=== PATIENT | male | born 1965 | race Caucasian/White ===

== ENCOUNTER 2018-05-08 01:22 | Inpatient (IN) ==
[2018-05-08 01:54] LABS: Baso # (Auto) 0.1 th/mm3 (0.0-0.2); Baso % (Auto) 0.6 % (0.0-2.0); Eos # (Auto) 0.2 th/mm3 (0.0-0.4); Eos % (Auto) 1.9 % (0.0-4.0); Hemoglobin 14.2 gm/dL (13.0-17.0); Lymph # (Auto) 4.6 th/mm3 (1.0-4.8); Lymph % (Auto) 40.3 % (9.0-44.0); Mean Corpuscular HGB Conc 33.8 % (32.0-36.0); Mean Corpuscular Hemoglobin 29.9 pg (27.0-34.0); Mean Corpuscular Volume 88.5 fL (80.0-100.0); Mean Platelet Volume 7.5 fL (7.0-11.0); Mono # (Auto) 0.8 th/mm3 (0.0-0.9); Mono % (Auto) 6.8 % (0.0-8.0); Neut # (Auto) 5.7 th/mm3 (1.8-7.7); Neut % (Auto) 50.4 % (16.0-70.0); Platelet Count 256 th/mm3 (150-450); Red Blood Count 4.75 mil/mm3 (4.50-5.90); White Blood Count 11.3 th/mm3 (4.0-11.0)
[2018-05-08] MEDS ORDERED: Morphine Inj 4 MG/ML Vial IV.PUSH ONE (01:54)
[2018-05-08] MEDS ORDERED: ceFAZolin 2 GM Premix Inj 2 GM/50 ML PIGGYBACK IV.SIG ONE (01:54)
[2018-05-08] MEDS ORDERED: Diphtheria/Tetanus/Pertussis Vaccine Inj 0.5 ML Syringe IM ONE (01:57)
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
[2018-05-08 02:03] LABS: Activated Partial Thrombo Time 19.8 sec (24.3-30.1); Prothrombin Time 10.2 sec (9.8-11.6)
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
[2018-05-08] MEDS ORDERED: Post-op Orders (for Pharmacy) OTHER STA (02:20)
[2018-05-08] MEDS ORDERED: Promethazine 25 MG Supp RECTAL PRN (02:20)
[2018-05-08] MEDS ORDERED: Bisacodyl 10 MG Supp RECTAL PRN (02:20)
[2018-05-08] MEDS ORDERED: Morphine Inj 4 MG/ML Vial IV.PUSH PRN (02:20)
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
[2018-05-08 02:37] LABS: Calcium 8.5 mg/dL (8.5-10.1); Carbon Dioxide 23.2 meq/L (21.0-32.0); Potassium 3.9 meq/L (3.5-5.1)
[2018-05-08] MEDS: Methocarbamol Inj 1,000 MG in Sodium Chlor 0.9% Inj 240 ML IV.SIG SCH ×3 (05:18→20:07)
[2018-05-08] MEDS: KCL 20 mEq/NACL 0.45% Inj 1,000 ML IV.CONT SCH ×3 (05:19→22:24)
[2018-05-08] MEDS: Lidocaine 5% Patch T-DERMAL SCH (09:57)
[2018-05-08] MEDS: Senna/Docusate Sodium 8.6/50 MG Tablet PO SCH ×2 (09:57→22:23)
[2018-05-08] MEDS ORDERED: HYDROmorphone PF Inj 1 MG/ML Ampul IV.PUSH ONE (10:16)
[2018-05-08] MEDS ORDERED: Naloxone Inj 0.4 MG/ML Vial IV.PUSH PRN (10:16)
[2018-05-08] MEDS ORDERED: HYDROmorphone PF Inj 2 MG/ML Vial IV.PUSH ONE ×2 (11:00)
[2018-05-08] MEDS: HYDROmorphone PCA Inj 6 MG/30 ML PCA.VIAL PCA PRN (11:31)
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
[2018-05-08] MEDS: Multivitamin Inj 10 ML, Thiamine Inj 100 MG, Folic Acid Inj 1 MG in Sodium Chlor 0.9% I... IV.SIG SCH (13:10)
[2018-05-08 16:35] LABS: Hematocrit 39.8 % (39.0-51.0); Hemoglobin 13.2 gm/dL (13.0-17.0)
[2018-05-08 21:31] LABS: Hematocrit 37.1 % (39.0-51.0); Hemoglobin 12.5 gm/dL (13.0-17.0)
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
[2018-05-09] MEDS: Methocarbamol Inj 1,000 MG in Sodium Chlor 0.9% Inj 240 ML IV.SIG SCH ×3 (03:00→18:32)
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
[2018-05-09 05:45] LABS: Baso % (Auto) 0.3 % (0.0-2.0); Eos # (Auto) 0.1 th/mm3 (0.0-0.4); Eos % (Auto) 0.5 % (0.0-4.0); Hematocrit 39.1 % (39.0-51.0); Hemoglobin 12.9 gm/dL (13.0-17.0); Lymph # (Auto) 2.7 th/mm3 (1.0-4.8); Lymph % (Auto) 18.5 % (9.0-44.0); Mean Corpuscular HGB Conc 33.1 % (32.0-36.0); Mean Corpuscular Hemoglobin 29.8 pg (27.0-34.0); Mean Corpuscular Volume 90.1 fL (80.0-100.0); Mean Platelet Volume 7.9 fL (7.0-11.0); Mono # (Auto) 1.6 th/mm3 (0.0-0.9); Mono % (Auto) 11.3 % (0.0-8.0); Neut % (Auto) 69.4 % (16.0-70.0); Platelet Count 199 th/mm3 (150-450); Red Blood Count 4.33 mil/mm3 (4.50-5.90); Red Cell Distribution Width 14.6 % (11.6-17.2); White Blood Count 14.4 th/mm3 (4.0-11.0)
[2018-05-09 05:53] LABS: Calcium 8.2 mg/dL (8.5-10.1); Carbon Dioxide 19.4 meq/L (21.0-32.0); Potassium 3.7 meq/L (3.5-5.1)
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
[2018-05-09] MEDS: Senna/Docusate Sodium 8.6/50 MG Tablet PO SCH ×2 (08:39→21:12)
[2018-05-09] MEDS: KCL 20 mEq/NACL 0.45% Inj 1,000 ML IV.CONT SCH ×2 (08:39→22:14)
[2018-05-09] MEDS: amLODIPine 5 MG Tablet PO SCH (08:39)
[2018-05-09] MEDS: Lidocaine 5% Patch T-DERMAL SCH (08:40)
[2018-05-09] MEDS: Multivitamin Inj 10 ML, Thiamine Inj 100 MG, Folic Acid Inj 1 MG in Sodium Chlor 0.9% I... IV.SIG SCH (08:41)
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
[2018-05-09 09:32] LABS: Eosinophils 1 % (0-4); Lymphocytes 17 % (9-44); Monocytes 9 % (0-8); Myelocytes 1 % (0-0)
[2018-05-09 09:33] LABS: Platelet Estimate Normal (Normal); Platelet Morphology Normal (Normal); RBC Morphology Normal (Normal)
[2018-05-09] MEDS ORDERED: HYDROmorphone PF Inj 1 MG/ML Ampul IV.PUSH PRN (10:48)
[2018-05-09] MEDS: HYDROmorphone PCA Inj 6 MG/30 ML PCA.VIAL PCA PRN ×2 (12:03→21:19)
[2018-05-09] MEDS ORDERED: Gabapentin 300 MG Capsule PO SCH (14:00)
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
[2018-05-09] MEDS ORDERED: HYDROmorphone PF Inj 2 MG/ML Vial IV.PUSH PRN (21:15)
[2018-05-10] MEDS: Methocarbamol Inj 1,000 MG in Sodium Chlor 0.9% Inj 240 ML IV.SIG SCH ×4 (04:43→21:40)
[2018-05-10 05:14] LABS: Baso % (Auto) 0.5 % (0.0-2.0); Eos # (Auto) 0.1 th/mm3 (0.0-0.4); Eos % (Auto) 0.8 % (0.0-4.0); Hemoglobin 12.1 gm/dL (13.0-17.0); Lymph # (Auto) 1.2 th/mm3 (1.0-4.8); Lymph % (Auto) 12.2 % (9.0-44.0); Mean Corpuscular HGB Conc 33.7 % (32.0-36.0); Mean Corpuscular Hemoglobin 30.6 pg (27.0-34.0); Mean Corpuscular Volume 90.8 fL (80.0-100.0); Mean Platelet Volume 7.7 fL (7.0-11.0); Mono # (Auto) 0.9 th/mm3 (0.0-0.9); Mono % (Auto) 9.5 % (0.0-8.0); Neut # (Auto) 7.4 th/mm3 (1.8-7.7); Platelet Count 165 th/mm3 (150-450); Red Blood Count 3.96 mil/mm3 (4.50-5.90); Red Cell Distribution Width 14.1 % (11.6-17.2); White Blood Count 9.7 th/mm3 (4.0-11.0)
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
[2018-05-10 05:47] LABS: Anion Gap 10 meq/L (5-15); Blood Urea Nitrogen 12 mg/dL (7-18); Calcium 8.4 mg/dL (8.5-10.1); Carbon Dioxide 22.7 meq/L (21.0-32.0); Chloride 107 meq/L (98-107); Glomerular Filtration Rate Greater Than 89 mL/min (>89); Glucose,Random 110 mg/dL (74-106); Potassium 3.8 meq/L (3.5-5.1); Sodium 140 meq/L (136-145)
[2018-05-10] MEDS: Multivitamin Inj 10 ML, Thiamine Inj 100 MG, Folic Acid Inj 1 MG in Sodium Chlor 0.9% I... IV.SIG SCH (09:41)
[2018-05-10] MEDS: Lidocaine 5% Patch T-DERMAL SCH (09:41)
[2018-05-10] MEDS: Allopurinol 100 MG Tablet PO SCH (09:42)
[2018-05-10] MEDS: Sertraline 100 MG Tablet PO SCH (09:42)
[2018-05-10] MEDS: dilTIAZem CD 120 MG Capsule PO SCH (09:42)
[2018-05-10] MEDS: amLODIPine 5 MG Tablet PO SCH (09:42)
[2018-05-10] MEDS: Senna/Docusate Sodium 8.6/50 MG Tablet PO SCH ×2 (09:42→21:10)
[2018-05-10] MEDS ORDERED: HYDROmorphone PF Inj 2 MG/ML Vial IV.PUSH PRN (11:00)
[2018-05-10] MEDS: KCL 20 mEq/NACL 0.45% Inj 1,000 ML IV.CONT SCH (15:00)
--- NOTE | 2018-05-10 18:48 | P.PNCC ---
Subjective Brief History: 52-year-old male involved in an [facility]ISON positive EtOH Multiple rib fractures on the left side grade 3 splenic injury Admitted to the ICU for pain control and observation 24 Hour Review/Hospital Course: 05/09 It is complaining of severe pain at the left thoracic area site of his multiple rib fractures His I-S is very poor Remains hemodynamically normal Hemoglobin is stable as well 05/10 continues to c/o of severe pain at the site of the rib fractures IS about 700 cc requires 6 L o2 to maintain spo2 in the 90 ies range HD normal- abdomen-soft,benign Objective Vital Signs / I&O: Vital Signs 05/09/18 20:00 05/09/18 20:46 05/09/18 21:03 Temperature 98.4 F Pulse Rate 112 H 116 H Respiratory Rate 22 22 22 Blood Pressure 136/97 H Pulse Oximetry 90 L 96 05/10/18 00:00 05/10/18 00:12 05/10/18 01:01 Temperature 98.6 F Pulse Rate 113 H 105 H 110 H Respiratory Rate 18 21 Blood Pressure 108/77 Pulse Oximetry 90 L 05/10/18 03:54 05/10/18 04:00 05/10/18 08:00 Temperature 98.2 F 98.4 F Pulse Rate 113 H 108 H 98 H Respiratory Rate 15 22 22 Blood Pressure 122/82 126/78 Pulse Oximetry 92 L 96 05/10/18 08:38 05/10/18 12:00 05/10/18 12:43 Temperature 98 F Pulse Rate 104 H 104 H 102 H Respiratory Rate 20 18 24 Blood Pressure 106/71 Pulse Oximetry 92 L 05/10/18 16:00 05/10/18 16:03 Temperature 98.3 F Pulse Rate 108 H Respiratory Rate 20 Blood Pressure 130/73 Pulse Oximetry 91 L 91 L Intake & Output 05/09/18 05/10/18 05/10/18 18:59 06:59 18:59 Intake Total 3161.2 / 3161.2 600 / 600 1861.2 / 1861.2 Output Total 600 / 600 1150 / 1150 Balance 2561.2 / 2561.2 -550 / -550 1861.2 / 1861.2 Weight 98.5 kg Intake: IV 2761.2 / 2761.2 600 / 600 1861.2 / 1861.2 Potassium Chlor 20 mEq/NACL 0. 1999 / 2000 1000 / 1000 45% Inj 1,000 ML @ 100 mls/hr IV.CONT .Q10H [facility] Rx#:[id number] Ofirmev Inj 1,000 mg In 100 ml 100 / 100 @ 400 mls/hr IV.SIG Q6H [facility] Rx# :[id number] Robaxin Inj 1,000 MG In NS Inj 250 / 250 500 / 500 250 / 250 240 ML @ 500 mls/hr IV.SIG Q8H [facility] Rx#:[id number] MVI-12 Inj 10 ML Thiamine Inj 511.2 / 511.2 511.2 / 511.2 100 MG Folvite Inj 1 MG In NS Inj 500 ML @ 127.8 mls/hr IV. SIG Q24H [facility] Rx#:[id number] Oral 400 / 400 Output: Urine 600 / 600 1150 / 1150 Other: Date of Last Bowel Movement 05/08/18 05/08/18 05/08/18 # Bowel Movements 0 0 Result Diagrams: 05/10/18 04:28 05/10/18 04:28 Imaging: Impressions Chest X-Ray 05/10/18 06:00 CONCLUSION: Worsening left chest lung contusion and/or hemothorax Disinhibition Score: 14.00 Aggression Score: 14.00 Lability Score: 14.00 Agitated Behavior Total Score: 14 - Exam LOGISTICS CLERK: GCS 15 Hemodynamic/Cardiac: stable Pulmonary/Respiratory: BS clear b/l-poor effort Abdomen/GI Nutrition: soft,benign,tolerating diet Renal/I&O: uo adequat Hematologic: Hgb stable Assessment and Plan Plan: pain control with MANUFACTURING ACCOUNTANT Pulmonary toilet Serial H&H Out of bed in 24 hour Follow-up chest x-ray in the morning Supplemental oxygen C-collar removed after the exam 05/09 Increase the MANUFACTURING ACCOUNTANT dose Continue pulmonary toilet Postoperative physical therapy continue supplemental oxygen 05/10 continue MANUFACTURING ACCOUNTANT continue pulmonary toilet PT continue o2 DVT prophylaxis starting 05/11
[2018-05-11] MEDS: HYDROmorphone PCA Inj 6 MG/30 ML PCA.VIAL PCA PRN ×2 (00:19→23:01)
[2018-05-11 05:26] LABS: Baso # (Auto) 0.1 th/mm3 (0.0-0.2); Baso % (Auto) 0.7 % (0.0-2.0); Eos # (Auto) 0.2 th/mm3 (0.0-0.4); Eos % (Auto) 2.5 % (0.0-4.0); Hematocrit 34.1 % (39.0-51.0); Hemoglobin 11.6 gm/dL (13.0-17.0); Lymph # (Auto) 1.6 th/mm3 (1.0-4.8); Lymph % (Auto) 19.3 % (9.0-44.0); Mean Corpuscular Hemoglobin 30.7 pg (27.0-34.0); Mean Corpuscular Volume 90.4 fL (80.0-100.0); Mean Platelet Volume 7.7 fL (7.0-11.0); Mono # (Auto) 0.8 th/mm3 (0.0-0.9); Neut # (Auto) 5.8 th/mm3 (1.8-7.7); Neut % (Auto) 68.5 % (16.0-70.0); Platelet Count 174 th/mm3 (150-450); Red Blood Count 3.78 mil/mm3 (4.50-5.90); Red Cell Distribution Width 14.2 % (11.6-17.2); White Blood Count 8.4 th/mm3 (4.0-11.0)
[2018-05-11 05:40] LABS: Anion Gap 8 meq/L (5-15); Blood Urea Nitrogen 13 mg/dL (7-18); Calcium 8.3 mg/dL (8.5-10.1); Carbon Dioxide 24.7 meq/L (21.0-32.0); Chloride 109 meq/L (98-107); Glomerular Filtration Rate Greater Than 89 mL/min (>89); Glucose,Random 90 mg/dL (74-106); Potassium 3.8 meq/L (3.5-5.1); Sodium 142 meq/L (136-145)
--- NOTE | 2018-05-11 05:56 | XR ---
EXAM DATE: 05/11/2018 4:58 AM EDT AGE/SEX: 53 years / Male INDICATIONS: Follow up left side rib fractures. CLINICAL DATA: This is the patient's subsequent encounter. Patient reports that signs and symptoms h ave been present for 3 days and indicates a pain score of 7/10. MEDICAL/SURGICAL HISTORY: . Rib fractures. Non-responsive. [place] [facility] [place]. . FINDINGS: There is worsening hazy left lung pleural-parenchymal opacity and persistent consolidation in the med ial right base. Cardiac contours are grossly stable. CONCLUSION: Slight interval worsening in aeration Electronically signed by: Dean Hanks MD 05/11/2018 5:55 AM EDT
[2018-05-11] MEDS: Allopurinol 100 MG Tablet PO SCH (08:11)
[2018-05-11] MEDS: Lidocaine 5% Patch T-DERMAL SCH (08:11)
[2018-05-11] MEDS: amLODIPine 5 MG Tablet PO SCH (08:11)
[2018-05-11] MEDS: Senna/Docusate Sodium 8.6/50 MG Tablet PO SCH ×2 (08:11→21:13)
[2018-05-11] MEDS: dilTIAZem CD 120 MG Capsule PO SCH (08:11)
[2018-05-11] MEDS: Sertraline 100 MG Tablet PO SCH (08:11)
--- NOTE | 2018-05-11 12:56 | P.PNCC ---
Subjective Brief History: 52-year-old male involved in an [facility] positive EtOH Multiple rib fractures on the left side grade 3 splenic injury Admitted to the ICU for pain control and observation 24 Hour Review/Hospital Course: 05/09 It is complaining of severe pain at the left thoracic area site of his multiple rib fractures His I-S is very poor Remains hemodynamically normal Hemoglobin is stable as well 05/10 continues to c/o of severe pain at the site of the rib fractures IS about 700 cc requires 6 L o2 to maintain spo2 in the 90 ies range HD normal- abdomen-soft,benign 05/11 Patient was on high flow oxygen last night, was able to be weaned to 4 L oxygen His I-S is improving to the range 1000, abdomen benign Chest x-ray stable- Hemoglobin remained stable Anticipate transfer to the floor postop patient is cleared for open orthopedic procedure for tomorrow Objective Vital Signs / I&O: Vital Signs 05/10/18 16:00 05/10/18 16:03 05/10/18 20:00 Temperature 98.3 F 98.7 F Pulse Rate 108 H 108 H Respiratory Rate 20 21 Blood Pressure 130/73 110/61 Pulse Oximetry 91 L 91 L 94 L 05/10/18 20:15 05/10/18 22:44 05/11/18 00:00 Temperature 98.3 F Pulse Rate 109 H 94 H Respiratory Rate 17 21 20 Blood Pressure 116/71 Pulse Oximetry 93 L 05/11/18 04:00 05/11/18 07:59 05/11/18 08:00 Temperature 98.7 F 98.3 F Pulse Rate 92 H 92 H Respiratory Rate 20 14 Blood Pressure 117/61 120/75 Pulse Oximetry 97 94 L 94 L 05/11/18 09:34 05/11/18 09:36 05/11/18 11:34 Temperature Pulse Rate 94 H 103 H Respiratory Rate 14 16 Blood Pressure Pulse Oximetry 92 L Intake & Output 05/10/18 05/11/18 05/11/18 18:59 06:59 18:59 Intake Total 2341.2 / 2341.2 580 / 580 Output Total 2260 / 2260 1650 / 1650 Balance 81.2 / 81.2 -1070 / -1070 Weight 99.4 kg Intake: IV 1861.2 / 1861.2 100 / 100 Potassium Chlor 20 mEq/NACL 0. 1000 / 1000 45% Inj 1,000 ML @ 100 mls/hr IV.CONT .Q10H [facility] Rx#:[id number] Ofirmev Inj 1,000 mg In 100 ml 100 / 100 100 / 100 @ 400 mls/hr IV.SIG Q6H [facility] Rx# :[id number] Robaxin Inj 1,000 MG In NS Inj 250 / 250 240 ML @ 500 mls/hr IV.SIG Q8H [facility] Rx#:[id number] MVI-12 Inj 10 ML Thiamine Inj 511.2 / 511.2 100 MG Folvite Inj 1 MG In NS Inj 500 ML @ 127.8 mls/hr IV. SIG Q24H [facility] Rx#:[id number] Oral 480 / 480 480 / 480 Output: Urine 2260 / 2260 1650 / 1650 Other: Date of Last Bowel Movement 05/08/18 05/08/18 05/08/18 # Bowel Movements 0 0 Result Diagrams: 05/11/18 04:58 05/11/18 04:58 Imaging: Impressions Chest X-Ray 05/11/18 06:00 CONCLUSION: Slight interval worsening in aeration Disinhibition Score: 14.00 Aggression Score: 14.00 Lability Score: 14.00 Agitated Behavior Total Score: 14 - Exam HOME HEALTH CARE SOCIAL WORKER: g coma score is 15 neuro is intact Hemodynamic/Cardiac: Blood pressure heart rate are stable Pulmonary/Respiratory: 4 L of oxygen lungs slightly reduced on the site of the fracture Abdomen/GI Nutrition: Soft benign tolerating diet Hematologic: hemoGlobin stable Assessment and Plan Plan: pain control with PRODUCTION CONTROLLER Pulmonary toilet Serial H&H Out of bed in 24 hour Follow-up chest x-ray in the morning Supplemental oxygen C-collar removed after the exam 05/09 Increase the PRODUCTION CONTROLLER dose Continue pulmonary toilet Postoperative physical therapy continue supplemental oxygen 05/10 continue PRODUCTION CONTROLLER continue pulmonary toilet PT continue o2 DVT prophylaxis starting 05/11 05/11 Continue PRODUCTION CONTROLLER Continue pulmonary toilet Continue physical therapy continue supplemental oxygen Lovenox 30 twice daily for DVT peripheral
[2018-05-11] MEDS ORDERED: Enoxaparin Inj 30 MG/0.3 ML Syringe SQ SCH (21:00)
[2018-05-11] MEDS: KCL 20 mEq/NACL 0.45% Inj 1,000 ML IV.CONT SCH (23:00)
--- NOTE | 2018-05-12 04:54 | XR ---
EXAM DATE: 05/12/2018 4:43 AM EDT AGE/SEX: 53 years / Male INDICATIONS: Follow up left side rib fractures. CLINICAL DATA: This is the patient's subsequent encounter. Patient reports that signs and symptoms h ave been present for 3 days and indicates a pain score of 5/10. MEDICAL/SURGICAL HISTORY: None. None. COMPARISON: [facility], CHEST 1V SINGLE AP, 05/11/2018. . FINDINGS: Bilateral mostly basilar airspace disease with left effusion similar to May 11. No pneumothorax. Hea rt size mildly enlarged. CONCLUSION: Relatively stable appearance of bilateral mostly basilar airspace disease and left effusion. Electronically signed by: Aldair Parker MD 05/12/2018 4:53 AM EDT
[2018-05-12 05:09] LABS: Baso % (Auto) 0.4 % (0.0-2.0); Eos # (Auto) 0.2 th/mm3 (0.0-0.4); Eos % (Auto) 2.8 % (0.0-4.0); Hemoglobin 12.1 gm/dL (13.0-17.0); Lymph # (Auto) 1.8 th/mm3 (1.0-4.8); Lymph % (Auto) 21.1 % (9.0-44.0); Mean Corpuscular HGB Conc 34.5 % (32.0-36.0); Mean Corpuscular Volume 89.9 fL (80.0-100.0); Mono # (Auto) 0.8 th/mm3 (0.0-0.9); Mono % (Auto) 9.1 % (0.0-8.0); Neut # (Auto) 5.6 th/mm3 (1.8-7.7); Neut % (Auto) 66.6 % (16.0-70.0); Platelet Count 189 th/mm3 (150-450); Red Blood Count 3.89 mil/mm3 (4.50-5.90); Red Cell Distribution Width 14.1 % (11.6-17.2); White Blood Count 8.3 th/mm3 (4.0-11.0)
[2018-05-12 05:28] LABS: Alanine Aminotransferase 26 U/L (12-78); Albumin 2.9 g/dL (3.4-5.0); Anion Gap 10 meq/L (5-15); Aspartate Aminotransferase 23 U/L (15-37); Blood Urea Nitrogen 18 mg/dL (7-18); Calcium 8.5 mg/dL (8.5-10.1); Carbon Dioxide 25.4 meq/L (21.0-32.0); Chloride 106 meq/L (98-107); Glomerular Filtration Rate 85 mL/min (>89); Glucose,Random 92 mg/dL (74-106); Sodium 141 meq/L (136-145)
[2018-05-12 05:31] LABS: Alkaline Phosphatase 43 U/L (45-117); Total Protein 6.6 g/dL (6.4-8.2)
[2018-05-12] MEDS ORDERED: Sodium Chlor 0.9% Inj 250 ML ONE (07:04)
--- NOTE | 2018-05-12 07:16 | P.PNOP ---
Subjective Interval history: s/p left proximal ulna fx doing well. improving Physical Exam Vital signs: Vital Signs 05/11/18 07:59 05/11/18 08:00 05/11/18 09:34 Temperature 98.3 F Pulse Rate 92 H 94 H Respiratory Rate 14 14 Blood Pressure 120/75 Pulse Oximetry 94 L 94 L 05/11/18 09:36 05/11/18 11:34 05/11/18 12:00 Temperature 98.5 F Pulse Rate 103 H 104 H Respiratory Rate 16 23 Blood Pressure 123/82 Pulse Oximetry 92 L 90 L 05/11/18 16:00 05/11/18 17:00 05/11/18 20:00 Temperature 98.6 F 98.7 F Pulse Rate 103 H 98 H 106 H Respiratory Rate 23 15 18 Blood Pressure 112/61 122/71 Pulse Oximetry 93 L 96 05/11/18 20:17 05/12/18 00:00 05/12/18 04:00 Temperature 98.6 F 98.7 F Pulse Rate 109 H 97 H 90 Respiratory Rate 16 20 19 Blood Pressure 126/98 H 97/68 L Pulse Oximetry 97 94 L 98 05/12/18 06:05 Temperature Pulse Rate Respiratory Rate 19 Blood Pressure 105/61 Pulse Oximetry Intake & Output 05/11/18 05/12/18 05/12/18 18:59 06:59 18:59 Intake Total 400 / 400 100 / 100 Output Total 1500 / 1500 1800 / 1800 Balance -1100 / -1100 -1700 / -1700 Weight 98.4 kg Intake: Oral 400 / 400 100 / 100 Output: Urine 1500 / 1500 1800 / 1800 Other: # Voids 4 Date of Last Bowel Movement 05/08/18 05/08/18 # Bowel Movements 0 Narrative: LUE: +splint. intact. NVI Results - Labs CBC & Chem 7: 05/12/18 03:52 05/12/18 03:52 Laboratory Results - last 24 hr 05/12/18 05/12/18 03:52 03:52 WBC 8.3 RBC 3.89 L Hgb 12.1 L Hct 35.0 L MCV 89.9 MCH 31.0 MCHC 34.5 RDW 14.1 Plt Count 189 MPV 8.0 Neut % (Auto) 66.6 Lymph % (Auto) 21.1 Nye % (Auto) 9.1 H Eos % (Auto) 2.8 Baso % (Auto) 0.4 Neut # (Auto) 5.6 Lymph # (Auto) 1.8 Nye # (Auto) 0.8 Eos # (Auto) 0.2 Baso # (Auto) 0.0 WBC Differential . Differential Comment Auto diff final Sodium 141 Potassium 4.0 Chloride 106 Carbon Dioxide 25.4 Anion Gap 10 BUN 18 Creatinine 0.93 Estimated GFR 85 L Random Glucose 92 Calcium 8.5 Total Bilirubin 0.7 AST 23 ALT 26 Alkaline Phosphatase 43 L Total Protein 6.6 Albumin 2.9 L - Imaging Impressions Chest X-Ray 05/12/18 06:00 CONCLUSION: Relatively stable appearance of bilateral mostly basilar airspace disease and left effusion. Assessment and Plan - Problem List (1) Fracture of left ulna, shaft Code(s): S52.202A - Unspecified fracture of shaft of left ulna, initial encounter for closed fracture Status: Acute Qualifiers: Encounter type: initial encounter Fracture type: closed Fracture morphology: comminuted Fracture alignment: displaced Qualified Code(s): S52.252A - Displaced comminuted fracture of shaft of ulna, left arm, initial encounter for closed fracture - Assessment and Plan Left proximal ulna shaft fracture Maintain splint nonweightbearing left upper extremity NPO after MN possible surgery tomorrow will await clearance from trauma team regarding lung and rib issues
[2018-05-12] MEDS: Senna/Docusate Sodium 8.6/50 MG Tablet PO SCH ×2 (08:14→20:42)
[2018-05-12] MEDS: amLODIPine 5 MG Tablet PO SCH (08:14)
[2018-05-12] MEDS: Lidocaine 5% Patch T-DERMAL SCH (08:14)
[2018-05-12] MEDS: dilTIAZem CD 120 MG Capsule PO SCH (08:14)
[2018-05-12] MEDS: Allopurinol 100 MG Tablet PO SCH (08:14)
[2018-05-12] MEDS: Sertraline 100 MG Tablet PO SCH (08:14)
--- NOTE | 2018-05-12 11:59 | P.PNCC ---
Subjective Brief History: 52-year-old male involved in an [facility] [place] positive EtOH Multiple rib fractures on the left side grade 3 splenic injury Admitted to the ICU for pain control and observation 24 Hour Review/Hospital Course: 05/09 It is complaining of severe pain at the left thoracic area site of his multiple rib fractures His I-S is very poor Remains hemodynamically normal Hemoglobin is stable as well 05/10 continues to c/o of severe pain at the site of the rib fractures IS about 700 cc requires 6 L o2 to maintain spo2 in the 90 ies range HD normal- abdomen-soft,benign 05/11 Patient was on high flow oxygen last night, was able to be weaned to 4 L oxygen His I-S is improving to the range 1000, abdomen benign Chest x-ray stable- Hemoglobin remained stable Anticipate transfer to the floor postop patient is cleared for open orthopedic procedure for tomorrow 05/12 Patient is improving daily His I-S now is 1500, breath sounds clear Chest x-ray stable Now on nasal cannula supplemental oxygen Transfer to floor Continue CLEANING HANDYMAN Objective Vital Signs / I&O: Vital Signs 05/11/18 12:00 05/11/18 16:00 05/11/18 17:00 Temperature 98.5 F 98.6 F Pulse Rate 104 H 103 H 98 H Respiratory Rate 23 23 15 Blood Pressure 123/82 112/61 Pulse Oximetry 90 L 93 L 05/11/18 20:00 05/11/18 20:17 05/12/18 00:00 Temperature 98.7 F 98.6 F Pulse Rate 106 H 109 H 97 H Respiratory Rate 18 16 20 Blood Pressure 122/71 126/98 H Pulse Oximetry 96 97 94 L 05/12/18 04:00 05/12/18 06:05 05/12/18 07:29 Temperature 98.7 F Pulse Rate 90 Respiratory Rate 19 19 Blood Pressure 97/68 L 105/61 Pulse Oximetry 98 97 05/12/18 08:00 05/12/18 08:34 Temperature 98.1 F Pulse Rate 88 89 Respiratory Rate 13 17 Blood Pressure 115/56 L Pulse Oximetry 97 98 Intake & Output 05/11/18 05/12/18 05/12/18 18:59 06:59 18:59 Intake Total 400 / 400 100 / 100 Output Total 1500 / 1500 1800 / 1800 Balance -1100 / -1100 -1700 / -1700 Weight 98.4 kg Intake: Oral 400 / 400 100 / 100 Output: Urine 1500 / 1500 1800 / 1800 Other: # Voids 4 Date of Last Bowel Movement 05/08/18 05/08/18 05/08/18 # Bowel Movements 0 Result Diagrams: 05/12/18 03:52 05/12/18 03:52 Imaging: Impressions Chest X-Ray 05/12/18 06:00 CONCLUSION: Relatively stable appearance of bilateral mostly basilar airspace disease and left effusion. Disinhibition Score: 14.00 Aggression Score: 14.00 Lability Score: 14.00 Agitated Behavior Total Score: 14 - Exam MANAGED CARE SPECIALIST: GCS is 15 neuro intact Hemodynamic/Cardiac: b sounds clear bilateral Pulmonary/Respiratory: Hemodynamically normal Abdomen/GI Nutrition: Abdomen is soft Assessment and Plan Plan: pain control with CLEANING HANDYMAN Pulmonary toilet Serial H&H Out of bed in 24 hour Follow-up chest x-ray in the morning Supplemental oxygen C-collar removed after the exam 05/09 Increase the CLEANING HANDYMAN dose Continue pulmonary toilet Postoperative physical therapy continue supplemental oxygen 05/10 continue CLEANING HANDYMAN continue pulmonary toilet PT continue o2 DVT prophylaxis starting 05/11 05/11 Continue CLEANING HANDYMAN Continue pulmonary toilet Continue physical therapy continue supplemental oxygen Lovenox 30 twice daily for DVT prophylaxis 05/12 Continue CLEANING HANDYMAN Continue pulmonary toilet Continue physical therapy continue supplemental oxygen Lovenox 30 twice daily for DVT prophylaxis
[2018-05-12] MEDS: KCL 20 mEq/NACL 0.45% Inj 1,000 ML IV.CONT SCH (12:05)
--- NOTE | 2018-05-12 18:15 | ECG ---
Date Performed: 05/12/2018 Time Performed: 05:46:18 PTAGE: 53 years EKG: Sinus rhythm . Possible inferior infarct - age undetermined Abnormal ECG Compared to PREVIOUS TRACING , sinus rate has slowed. PREVIOUS TRACIN05/11/2018 21.01 DOCTOR: Alphonso Hare Interpretating Date/Time 05/12/2018 18:15:21
--- NOTE | 2018-05-12 18:15 | ECG ---
Date Performed: 05/11/2018 Time Performed: 21:01:08 PTAGE: 53 years EKG: SINUS TACHYCARDIA POSSIBLE INFERIOR MYOCARDIAL INFARCTION , PROBABLY OLD ABNORMAL RHYTHM EC G NO PREVIOUS TRACING DOCTOR: Alphonso Hare Interpretating Date/Time 05/12/2018 18:15:03
--- NOTE | 2018-05-13 03:58 | XR ---
EXAM DATE: 05/13/2018 3:31 AM EDT AGE/SEX: 53 years / Male INDICATIONS: . Trauma. CLINICAL DATA: This is the patient's subsequent encounter. Patient reports that signs and symptoms h ave been present for 4 - 6 days and indicates a pain score of 0/10. MEDICAL/SURGICAL HISTORY: None. None. COMPARISON: [facility] [place], CHEST 1V SINGLE AP, 05/12/2018. . FINDINGS: Basilar airspace disease, left greater than right with left effusion. Findings similar to May 12. No pneumothorax. Heart size within normal limits. CONCLUSION: Basilar airspace disease with pleural effusions, left greater than right. No significant change. Electronically signed by: Aldair Parker MD 05/13/2018 3:56 AM EDT
--- NOTE | 2018-05-13 06:44 | P.PNOP ---
Subjective Interval history: Continues to complain of pain to left forearm. Has improved since admission with breathing and left rib pain <Angel Escobar - Last Filed: 05/13/18 06:42> Physical Exam Vital signs: Vital Signs 05/12/18 07:29 05/12/18 08:00 05/12/18 08:34 Temperature 98.1 F Pulse Rate 88 89 Respiratory Rate 13 17 Blood Pressure 115/56 L Pulse Oximetry 97 97 98 05/12/18 12:00 05/12/18 16:00 05/12/18 20:00 Temperature 98.1 F 98.5 F 98.8 F Pulse Rate 88 91 H 102 H Respiratory Rate 23 21 20 Blood Pressure 103/76 113/68 118/68 Pulse Oximetry 94 L 93 L 97 05/12/18 21:32 05/13/18 00:41 05/13/18 04:30 Temperature 98.0 F 98.7 F Pulse Rate 94 H 84 Respiratory Rate 20 18 Blood Pressure 109/74 116/70 Pulse Oximetry 94 L 92 L 93 L Intake & Output 05/12/18 05/12/18 05/13/18 06:59 18:59 06:59 Intake Total 100 / 100 1360 / 1360 Output Total 1800 / 1800 500 / 500 Balance -1700 / -1700 1360 / 1360 -500 / -500 Weight 98.4 kg 98 kg Intake: IV 1000 / 1000 Potassium Chlor 20 mEq/NACL 0. 1000 / 1000 45% Inj 1,000 ML @ 30 mls/hr IV .CONT .Q24H [facility] Rx#:[id number] Oral 100 / 100 360 / 360 Output: Urine 1800 / 1800 500 / 500 Other: # Voids 3 Date of Last Bowel Movement 05/08/18 05/08/18 05/08/18 # Bowel Movements 0 Narrative: Left upper extremity: Splint in place. Intact sensation distally over radial ulnar median nerve distributions with good capillary refills. He is able to extend his fingers make a fist <ShawnAngel - Last Filed: 05/13/18 06:42> Vital signs: Vital Signs 05/12/18 12:00 05/12/18 16:00 05/12/18 20:00 Temperature 98.1 F 98.5 F 98.8 F Pulse Rate 88 91 H 102 H Respiratory Rate 23 21 20 Blood Pressure 103/76 113/68 118/68 Pulse Oximetry 94 L 93 L 97 05/12/18 21:32 05/13/18 00:41 05/13/18 04:30 Temperature 98.0 F 98.7 F Pulse Rate 94 H 84 Respiratory Rate 20 18 Blood Pressure 109/74 116/70 Pulse Oximetry 94 L 92 L 93 L 05/13/18 08:00 Temperature 97.7 F Pulse Rate 90 Respiratory Rate 16 Blood Pressure 134/72 Pulse Oximetry 94 L Intake & Output 05/12/18 05/13/18 05/13/18 18:59 06:59 18:59 Intake Total 1360 / 1360 1250 / 1250 Output Total 500 / 500 50 / 50 Balance 1360 / 1360 -500 / -500 1200 / 1200 Weight 98 kg Intake: IV 1000 / 1000 1000 / 1000 Potassium Chlor 20 mEq/NACL 0. 1000 / 1000 45% Inj 1,000 ML @ 30 mls/hr IV .CONT .Q24H [facility] Rx#:[id number] LR 1000 mL Inj 1,000 ML @ 30 1000 / 1000 mls/hr IV.SIG .Q24H [facility] Rx#: [id number] Oral 360 / 360 Anesthesia Amount 250 / 250 Output: Urine 500 / 500 Estimated Blood Loss 50 / 50 Other: # Voids 3 Date of Last Bowel Movement 05/08/18 05/08/18 # Bowel Movements 0 <Dave Huitron - Last Filed: 05/13/18 10:41> Results - Labs CBC & Chem 7: 05/12/18 03:52 05/12/18 03:52 - Imaging Impressions Chest X-Ray 05/13/18 06:00 CONCLUSION: Basilar airspace disease with pleural effusions, left greater than right. No significant change. <Angel Escobar - Last Filed: 05/13/18 06:42> - Labs CBC & Chem 7: 05/12/18 03:52 05/12/18 03:52 - Imaging Impressions Chest X-Ray 05/13/18 06:00 CONCLUSION: Basilar airspace disease with pleural effusions, left greater than right. No significant change. <Dave Huitron - Last Filed: 05/13/18 10:41> Assessment and Plan - Problem List (1) Fracture of left ulna, shaft Code(s): S52.202A - Unspecified fracture of shaft of left ulna, initial encounter for closed fracture Status: Acute Qualifiers: Encounter type: initial encounter Fracture type: closed Fracture morphology: comminuted Fracture alignment: displaced Qualified Code(s): S52.252A - Displaced comminuted fracture of shaft of ulna, left arm, initial encounter for closed fracture - Assessment and Plan Left proximal ulna shaft fracture Maintain splint nonweightbearing left upper extremity NPO Sign consents Surgery today for left proximal ulna shaft fracture <Angel Escobar - Last Filed: 05/13/18 06:42> - Problem List (1) Fracture of left ulna, shaft Code(s): S52.202A - Unspecified fracture of shaft of left ulna, initial encounter for closed fracture Status: Acute Qualifiers: Encounter type: initial encounter Fracture type: closed Fracture morphology: comminuted Fracture alignment: displaced Qualified Code(s): S52.252A - Displaced comminuted fracture of shaft of ulna, left arm, initial encounter for closed fracture - Assessment and Plan [facility] Prescription Drug Monitoring Database has been queried and verified prior to prescribing the controlled substance. Acute pain exception. This patient has normal, predicted, physiological, and time limited response to an adverse mechanical stimulus associated with surgery, trauma, or acute illness as described in my notes. There is a lack of alternative treatment options other than to include the prescribed narcotic treatment for this condition. <Dave Huitron - Last Filed: 05/13/18 10:41>
[2018-05-13] MEDS: Sertraline 100 MG Tablet PO SCH (08:26)
[2018-05-13] MEDS: dilTIAZem CD 120 MG Capsule PO SCH (08:26)
[2018-05-13] MEDS: Allopurinol 100 MG Tablet PO SCH (08:27)
[2018-05-13] MEDS: Lidocaine 5% Patch T-DERMAL SCH (08:27)
[2018-05-13] MEDS: amLODIPine 5 MG Tablet PO SCH (08:27)
[2018-05-13] MEDS: Senna/Docusate Sodium 8.6/50 MG Tablet PO SCH ×2 (08:28→22:09)
[2018-05-13] MEDS ORDERED: Chlorhexidine Gluconate 2% 1 Pack (2 Cloths) TOPICAL SCH (09:45)
[2018-05-13] MEDS ORDERED: Metoprolol Tartrate 25 MG Tablet PO SCH (09:45)
[2018-05-13] MEDS ORDERED: Sodium Chlor 0.9% Inj 500 ML IV.SIG SCH (10:00)
[2018-05-13] MEDS ORDERED: Post-op Orders (for Pharmacy) OTHER STA (10:07)
--- NOTE | 2018-05-13 10:13 | P.OP ---
Date of procedure: 05/13/18 Procedure: Open reduction internal fixation left ulna shaft fracture Anesthesia: GETA Surgeon: Spencer Khanna MD Sand Hauler: NENO Ayers PA-C The surgical procedure was assisted by my physician promotions assistant. My P.A. presence was necessary throughout this case for the manipulation and positioning of the surgical extremity. My P.A. was assisting me throughout the duration of this procedure. The skill set of a physician promotions assistant was medically necessary to complete this procedure. During the surgical case the surgical services director was working at the back table and the physician promotions assistant was directly assisting me. Operation and Findings: Implants used : ITS Patient was seen and examined preoperatively. Patient was found to have displaced left ulna shaft fracture. Informed consent was obtained and operative site was marked. Patient was brought to operating room and given IV sedation and general anesthesia. Timeout procedure was performed. Operative extremity was prepped and draped with alcohol followed by Hibiclens and draped in usual sterile fashion. IV antibiotics were administered prior to incision. Procedure began with a 5 inch incision over the subcutaneous border of the ulna. Fascia was elevated off of the bone. Fracture site was visualized. Fracture tenaculums were used to reduce fracture. Fracture keyed into anatomic alignment. There was mild comminution of the fracture. The butterfly fragment also reduced into excellent alignment. A plate was placed across the fracture. Plate was provisionally held to bone with K wires. 3.5 cortical screws were used to compress plate to bone. Multiple screws were placed in each side of fracture. K wires were removed. Fluoroscopy confirmed excellent alignment of fracture with well-placed hardware. Incision was now closed with # 1 Vicryl, 3-0 Vicryl, and beth. Sterile dressings were applied with Xeroform 4 x 4 soft roll and Niall wrap. Needle and sponge counts were correct. Patient was awakened and transferred to recovery room in stable condition. Forearm compartments were soft and compressible.
--- NOTE | 2018-05-13 10:47 | P.DCO ---
- Nursing Dressing changes: Daily dressing change, Xeroform, Coverderm/Primapore - Certification Need for Home Health services: I have seen patient Faustino Prater on 05/13/18. My clinical findings support the need for the requested home health care services because: Need for Home Health Services: Limited mobility due to disease progression Homebound Certification: I certify that my clinical findings support that this patient is homebound because: Homebound Certification: Post-op weakness
[2018-05-13] MEDS ORDERED: MethylPREDNISolone Sod Succinate Inj 125 MG/2 ML Vial ONE (10:53)
[2018-05-13] MEDS ORDERED: fentaNYL Citrate Inj 100 MCG/2 ML Ampul ONE (10:58)
[2018-05-13] MEDS ORDERED: *Meperidine Inj 25 MG/ML Vial PERIprocedural Use ONLY ONE (11:03)
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
--- NOTE | 2018-05-13 11:49 | XR ---
EXAM DATE: 05/13/2018 11:28 AM EDT AGE/SEX: 53 years / Male INDICATIONS: . Difficulty breathing post surgery. CLINICAL DATA: This is the patient's initial encounter. Patient reports that signs and symptoms have been present for 1 day and indicates a pain score of 0/10. MEDICAL/SURGICAL HISTORY: None. None. COMPARISON: [facility] [place], CHEST 1V SINGLE AP, 05/13/2018. . FINDINGS: Haziness involving the left lung most likely related to pleural effusion with some degree of left sri g base consolidation. There is also consolidation and/or atelectasis right lung base worse since the prior exam. CONCLUSION: 1. Right lung base consolidation and/or atelectasis worse since the prior exam. 2. Persistent left pleural effusion left lung base consolidation slightly different in appearance co mpared to the prior exam may be positional. Electronically signed by: Edilson Solorio MD 05/13/2018 11:47 AM EDT
[2018-05-13] MEDS ORDERED: Lidocaine PF 1% Inj 5 ML Syringe INFILTRATN ONE (12:00)
[2018-05-13] MEDS ORDERED: Succinylcholine Inj 100 MG/5 ML Syringe IV.PUSH ONE (12:00)
[2018-05-13] MEDS ORDERED: Phenylephrine/NS 1000 MCG/10ML Syringe IV.PUSH ONE (12:00)
[2018-05-13] MEDS: HYDROmorphone PCA Inj 6 MG/30 ML PCA.VIAL PCA PRN (14:10)
[2018-05-13] MEDS: KCL 20 mEq/NACL 0.45% Inj 1,000 ML IV.CONT SCH ×3 (15:57→17:25)
[2018-05-13] MEDS: ceFAZolin 2 GM Premix Inj 2 GM/50 ML PIGGYBACK IV.SIG SCH (16:00)
--- NOTE | 2018-05-13 17:39 | XR ---
EXAM DATE: 05/13/2018 5:15 PM EDT AGE/SEX: 53 years / Male INDICATIONS: Left forearm ORIF. CLINICAL DATA: This is the patient's initial encounter. Patient reports that signs and symptoms have been present for 1 day and indicates a pain score of Nonresponsive. MEDICAL/SURGICAL HISTORY: None. None. COMPARISON: [facility] [place] 2V, 05/08/[place]. . FINDINGS: Side plate and multiple screws traverse the ulna with excellent anatomical alignment of the bony stru ctures. CONCLUSION: Intact postsurgical changes for technique. Electronically signed by: Edilson Solorio MD 05/13/2018 5:38 PM EDT
[2018-05-13 18:44] LABS: Baso % (Auto) 0.1 % (0.0-2.0); Hematocrit 36.6 % (39.0-51.0); Hemoglobin 12.5 gm/dL (13.0-17.0); Lymph # (Auto) 0.5 th/mm3 (1.0-4.8); Lymph % (Auto) 5.1 % (9.0-44.0); Mean Corpuscular Hemoglobin 30.6 pg (27.0-34.0); Mean Corpuscular Volume 89.9 fL (80.0-100.0); Mean Platelet Volume 7.6 fL (7.0-11.0); Mono # (Auto) 0.1 th/mm3 (0.0-0.9); Mono % (Auto) 1.5 % (0.0-8.0); Neut # (Auto) 9.2 th/mm3 (1.8-7.7); Neut % (Auto) 93.3 % (16.0-70.0); Platelet Count 255 th/mm3 (150-450); Red Blood Count 4.07 mil/mm3 (4.50-5.90); Red Cell Distribution Width 13.7 % (11.6-17.2); White Blood Count 9.9 th/mm3 (4.0-11.0)
[2018-05-13 18:56] LABS: Albumin 3.1 g/dL (3.4-5.0); Anion Gap 12 meq/L (5-15); Aspartate Aminotransferase 26 U/L (15-37); Blood Urea Nitrogen 22 mg/dL (7-18); Calcium 9.1 mg/dL (8.5-10.1); Chloride 105 meq/L (98-107); Glomerular Filtration Rate 63 mL/min (>89); Glucose,Random 171 mg/dL (74-106); Potassium 4.1 meq/L (3.5-5.1); Sodium 139 meq/L (136-145)
[2018-05-13 18:57] LABS: Alanine Aminotransferase 28 U/L (12-78)
[2018-05-13 18:59] LABS: Alkaline Phosphatase 58 U/L (45-117); Total Protein 7.4 g/dL (6.4-8.2)
[2018-05-14] MEDS: ceFAZolin 2 GM Premix Inj 2 GM/50 ML PIGGYBACK IV.SIG SCH ×3 (02:22→16:37)
[2018-05-14] MEDS: KCL 20 mEq/NACL 0.45% Inj 1,000 ML IV.CONT SCH ×2 (02:23→10:30)
[2018-05-14 06:25] LABS: Baso % (Auto) 0.1 % (0.0-2.0); Hematocrit 36.2 % (39.0-51.0); Hemoglobin 12.4 gm/dL (13.0-17.0); Lymph % (Auto) 9.6 % (9.0-44.0); Mean Corpuscular HGB Conc 34.3 % (32.0-36.0); Mean Corpuscular Hemoglobin 31.1 pg (27.0-34.0); Mean Corpuscular Volume 90.7 fL (80.0-100.0); Mean Platelet Volume 7.5 fL (7.0-11.0); Mono # (Auto) 0.9 th/mm3 (0.0-0.9); Neut # (Auto) 8.9 th/mm3 (1.8-7.7); Neut % (Auto) 82.3 % (16.0-70.0); Platelet Count 260 th/mm3 (150-450); Red Cell Distribution Width 13.8 % (11.6-17.2); White Blood Count 10.8 th/mm3 (4.0-11.0)
[2018-05-14 06:55] LABS: Alanine Aminotransferase 27 U/L (12-78); Albumin 3.3 g/dL (3.4-5.0); Anion Gap 7 meq/L (5-15); Aspartate Aminotransferase 25 U/L (15-37); Blood Urea Nitrogen 20 mg/dL (7-18); Calcium 8.7 mg/dL (8.5-10.1); Chloride 107 meq/L (98-107); Glomerular Filtration Rate 80 mL/min (>89); Glucose,Random 116 mg/dL (74-106); Potassium 4.2 meq/L (3.5-5.1); Sodium 140 meq/L (136-145)
[2018-05-14 06:58] LABS: Alkaline Phosphatase 53 U/L (45-117); Total Protein 7.3 g/dL (6.4-8.2)
--- NOTE | 2018-05-14 07:24 | XR ---
EXAM DATE: 05/14/2018 7:19 AM EDT AGE/SEX: 53 years / Male INDICATIONS: . Short of breath. CLINICAL DATA: This is the patient's subsequent encounter. Patient reports that signs and symptoms h ave been present for 2 days and indicates a pain score of Nonresponsive. MEDICAL/SURGICAL HISTORY: None. None. COMPARISON: [place], CHEST 1V SINGLE AP, 05/13/2018. . FINDINGS: Progressive right lung base airspace consolidation and volume loss. Persistent evdhl-rx-qxmmdwet left pleural effusion with associated left lower lung zone airspace disease. Cardiomediastinal contours a re within normal limits. Bony thorax is intact. CONCLUSION: 1. Progressive right lung base airspace consolidation and volume loss consistent with progressive at electasis. 2. Stable fmnes-ut-nqdnlljg left pleural effusion with associated left lower lung zone airspace dise ase. Electronically signed by: Lb Piedra MD 05/14/2018 7:23 AM EDT
[2018-05-14] MEDS: Lidocaine 5% Patch T-DERMAL SCH (08:45)
[2018-05-14] MEDS: dilTIAZem CD 120 MG Capsule PO SCH (08:47)
[2018-05-14] MEDS: Senna/Docusate Sodium 8.6/50 MG Tablet PO SCH ×2 (08:47→21:42)
[2018-05-14] MEDS: amLODIPine 5 MG Tablet PO SCH (08:48)
[2018-05-14] MEDS: Allopurinol 100 MG Tablet PO SCH (08:48)
[2018-05-14] MEDS: Sertraline 100 MG Tablet PO SCH (08:48)
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
[2018-05-15] MEDS: ceFAZolin 2 GM Premix Inj 2 GM/50 ML PIGGYBACK IV.SIG SCH (02:00)
--- NOTE | 2018-05-15 05:39 | XR ---
EXAM DATE: 05/15/2018 5:34 AM EDT AGE/SEX: 53 years / Male INDICATIONS: . Shortness of breath CLINICAL DATA: This is the patient's subsequent encounter. Patient reports that signs and symptoms h ave been present for 1 week and indicates a pain score of 8/10. MEDICAL/SURGICAL HISTORY: None. None. [place] [facility] [place]. . FINDINGS: There is bilateral mostly basilar airspace disease. Small pleural effusion. No pneumothorax. CONCLUSION: Basilar airspace disease with small left pleural effusion. No pneumothorax. Electronically signed by: Aldair Parker MD 05/15/2018 5:37 AM EDT
--- NOTE | 2018-05-15 07:10 | P.PNOP ---
Subjective Interval history: POD 2 s/p ORIF left ulna doing well. pain controlled. no new complaints Physical Exam Vital signs: Vital Signs 05/14/18 08:00 05/14/18 11:46 05/14/18 12:00 Temperature 97.1 F L 97.5 F L Pulse Rate 90 99 H Respiratory Rate 18 18 Blood Pressure 118/77 128/81 Pulse Oximetry 93 L 93 L 94 L 05/14/18 16:00 05/14/18 20:00 05/15/18 00:00 Temperature 97.3 F L 97.7 F 97.7 F Pulse Rate 92 H 90 81 Respiratory Rate 16 18 18 Blood Pressure 136/84 123/79 119/73 Pulse Oximetry 94 L 94 L 93 L Intake & Output 05/14/18 05/15/18 05/15/18 18:59 06:59 18:59 Intake Total 1900 / 1900 50 / 50 Output Total 0 / 0 Balance 1900 / 1900 50 / 50 Intake: IV 100 / 100 50 / 50 Ancef 2 GM Premix Inj 2 gm In 100 / 100 50 / 50 50 ml @ 100 mls/hr IV.SIG Q8H [facility] Rx#:[id number] Oral 1800 / 1800 Output: Urine 0 / 0 Other: # Voids 5 Date of Last Bowel Movement 05/13/18 05/14/18 Narrative: LUE: dressings clean and dry. intact. NVI. +sling. Results - Labs CBC & Chem 7: 05/14/18 05:33 05/14/18 05:38 - Imaging Impressions Chest X-Ray 05/14/18 06:00 CONCLUSION: 1. Progressive right lung base airspace consolidation and volume loss consistent with progressive atelectasis. 2. Stable gvbne-iw-wrkvjipd left pleural effusion with associated left lower lung zone airspace disease. Chest X-Ray 05/15/18 06:00 CONCLUSION: Basilar airspace disease with small left pleural effusion. No pneumothorax. Assessment and Plan - Problem List (1) Fracture of left ulna, shaft Code(s): S52.202A - Unspecified fracture of shaft of left ulna, initial encounter for closed fracture Status: Acute Qualifiers: Encounter type: initial encounter Fracture type: closed Fracture morphology: comminuted Fracture alignment: displaced Qualified Code(s): S52.252A - Displaced comminuted fracture of shaft of ulna, left arm, initial encounter for closed fracture - Assessment and Plan 1) Left Ulna fx s/p ORIF - POD 2 -NWB -daily dressing changes -PROM of elbow -sling when out of bed -CM for HHC -ortho cleared for DC home -f/u with [facility] or [facility] in 2 weeks E-FORCSE Prescription Drug Monitoring Database has been queried and verified prior to prescribing the controlled substance. Acute pain exception. This patient has normal, predicted, physiological, and time limited response to an adverse mechanical stimulus associated with surgery, trauma, or acute illness as described in my notes. There is a lack of alternative treatment options other than to include the prescribed narcotic treatment for this condition.
[2018-05-15] MEDS: Senna/Docusate Sodium 8.6/50 MG Tablet PO SCH (09:00)
[2018-05-15] MEDS: Allopurinol 100 MG Tablet PO SCH (09:00)
[2018-05-15] MEDS: dilTIAZem CD 120 MG Capsule PO SCH (09:00)
[2018-05-15] MEDS: amLODIPine 5 MG Tablet PO SCH (09:01)
[2018-05-15] MEDS: Lidocaine 5% Patch T-DERMAL SCH (09:01)
[2018-05-15] MEDS: Sertraline 100 MG Tablet PO SCH (09:01)
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
== END 2018-05-15 16:59 | disposition home health service (06) ==
LOC: NEPI 01:22 → EDBD 02:20 → NEDA 02:20 → N03 03:00 → N07 05-12 22:35
PROVIDERS: ADMIT Surgery; ATTEND Surgery